=== PATIENT | female | born 1955 | race Caucasian/White ===

== ENCOUNTER 2021-02-02 12:57 | Emergency (ER) | payer MEDICARE ==
[2021-02-02] MEDS ORDERED: Dextrose 5% in Water 1,000 ML IV SCH (13:15)
[2021-02-02 13:25] VITALS: BP 160/72; PULSE 88
--- NOTE | 2021-02-02 14:50 | EDM.PDOC ---
ED HPI GENERAL MEDICAL PROBLEM - General Chief Complaint: Diabetic Complaint Stated Complaint: HYPOGLYCEMIA Time Seen by Provider: 02/02/21 13:10 Source of Information: Reports: Patient History Limitations: Reports: No Limitations - History of Present Illness INITIAL COMMENTS - FREE TEXT/NARRATIVE: patient with a known history of DM who presented to the ER due to concerns for l ow blood sugar levels. She was seem at the [facility] education clinic this morning when she '' dozed off '' according to description by the nurse who decided to check her BS - was 23. Reports that she had a breakfast this morning - but smaller than usual - then had her insulin injection. Had orange juice on her way to the ER - BS upon arrival os 65. Alert and oriented. - Related Data Allergies Allergy/AdvReac Type Severity Reaction Status Date / Time ibuprofen Allergy Intermediate migraine Verified 02/02/21 13:26 fluoxetine HCl [From Prozac] Allergy Cannot Verified 02/02/21 13:26 Remember gabapentin [From Neurontin] Allergy Cannot Verified 02/02/21 13:26 Remember Home Meds: Home Meds Aspirin 325 mg PO DAILY 07/25/13 [History] DULoxetine [Cymbalta] 60 mg PO DAILY 07/25/13 [History] Furosemide 20 mg PO DAILY 07/25/13 [History] Glimepiride 8 mg PO DAILY 07/25/13 [History] Hydrochlorothiazide 25 mg PO DAILY 07/25/13 [History] Indomethacin [Indocin SR] PRN 07/25/13 [History] Insulin Glarg,Human.Rec.Analog [Lantus Solostar] 49 units SQ BID 07/25/13 [History] Insulin Lispro [Humalog] 07/25/13 [History] Lisinopril 40 mg PO DAILY 07/25/13 [History] Omeprazole 20 mg PO DAILY 07/25/13 [History] Pregabalin [Lyrica] 60 mg PO TID 07/25/13 [History] metFORMIN [Glucophage] 1,000 PO BID 07/25/13 [History] Past Medical History Cardiovascular History: Reports: High Cholesterol, Hypertension Respiratory History: Reports: Asthma Gastrointestinal History: Reports: Other (See Below) Other Gastrointestinal History: 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 [employer] DIRECTOR History: Reports: Other (See Below) Other [employer] RESEARCH DIRECTOR History: total hysterectomy, masectomy on RT hx breast cancer Endocrine/Metabolic History: Reports: Diabetes, Type II, Obesity/BMI 30+ Social & Family History - Recreational Drug Use Recreational Drug Use: No ED ROS GENERAL - Review of Systems Review Of Systems: See Below Constitutional: Reports: No Symptoms HEENT: Reports: No Symptoms Respiratory: Reports: No Symptoms Cardiovascular: Reports: No Symptoms GI/Abdominal: Reports: No Symptoms : Reports: No Symptoms Musculoskeletal: Reports: Back Pain ED EXAM GENERAL NO PERIP PULSE - Physical Exam Exam: See Below Exam Limited By: No Limitations General Appearance: Alert, WD/WN, No Apparent Distress Eye Exam: Bilateral Eye: EOMI Respiratory/Chest: No Respiratory Distress Cardiovascular: Regular Rate, Rhythm GI/Abdominal: Normal Bowel Sounds, Soft Neurological: Alert, Oriented Course - Vital Signs Last Recorded V/S: Last Vital Signs Temp 36.4 C 02/02/21 13:23 Pulse 88 02/02/21 13:23 Resp 16 02/02/21 13:23 BP 160/72 H 02/02/21 13:23 Pulse Ox 96 02/02/21 13:23 - Orders/Labs/Meds Orders: Active Orders 24 hr Category Date Time Status GLYCOSYLATED HEMOGLOBIN,HGBA1C [CHEM] Stat Lab 02/02/21 14:01 Received Dextrose 5% in Water 1,000 ml Med 02/02/21 13:15 Active IV ASDIRECTED Medication Orders Dextrose/Water (Dextrose 5% In Water) 1,000 mls @ 999 mls/hr IV ASDIRECTED LIANET Last Admin: 02/02/21 13:15 Dose: 999 mls/hr Documented by: KEVIN Labs: Laboratory Tests 02/02/21 Range/Units 14:01 Sodium 142 (136-145) mmol/L Potassium 4.0 D (3.5-5.1) mmol/L Chloride 106 (98-107) mmol/L Carbon Dioxide 22.3 (21.0-32.0) mmol/L Anion Gap 17.7 H (5.0-15.0) mmol/L BUN 18 (8-26) mg/dL Creatinine 0.77 (0.55-1.02) mg/dL Est Cr Clr Drug Dosing 58.65 mL/min Estimated GFR (MDRD) > 60 (>60) MLS/MIN BUN/Creatinine Ratio 23.4 (6-25) Glucose 138 H (74-100) mg/dL Calcium 10.3 H (8.5-10.1) mg/dL Meds: Medications Generic Name Dose Route Start Last Admin Trade Name Hope PRN Reason Stop Dose Admin Dextrose/Water 1,000 mls @ 999 mls/hr 02/02/21 13:15 02/02/21 13:15 Dextrose 5% In Water IV 999 mls/hr ASDIRECTED [facility] Administration - Re-Assessments/Exams Free Text/Narrative Re-Assessment/Exam: blood tests ordered IV insulin dextrose 5% tolerated PO intake Departure - Departure Time of Disposition: 15:10 Disposition: Home, Self-Care 01 Condition: Good Clinical Impression: Hypoglycemia - Discharge Information *PRESCRIPTION DRUG MONITORING PROGRAM REVIEWED*: Not Applicable *COPY OF PRESCRIPTION DRUG MONITORING REPORT IN PATIENT LAMONTE: Not Applicable Instructions: Hypoglycemia, Hypoglycemia, [id number] Referrals: PCP,None [Primary Care Provider] - Forms: ED Department Discharge Additional Instructions: - resume home meds as before - recommend frequent blood sugar checks and to keep a sugar antonio snacks near by lico your BS dropped down - follow up with your PCP in 1-2 weeks to discuss insulin doses Sepsis Event Note (ED) - Evaluation Sepsis Screening Result: No Definite Risk - Focused Exam Vital Signs: Vital Signs Temp Pulse Resp BP Pulse Ox 02/02/21 13:23 36.4 C 88 16 160/72 H 96 - Problem List & Annotations (1) Hypoglycemia SNOMED Code(s): 006858582 Code(s): E16.2 - HYPOGLYCEMIA, UNSPECIFIED Status: Acute Priority: Medium Current Visit: Yes - Problem List Review Problem List Initiated/Reviewed/Updated: Yes - My Orders Last 24 Hours: My Active Orders 02/02/21 13:15 Dextrose 5% in Water 1,000 ml IV ASDIRECTED 02/02/21 14:01 GLYCOSYLATED HEMOGLOBIN,HGBA1C [CHEM] Stat - Assessment/Plan Last 24 Hours: My Active Orders 02/02/21 13:15 Dextrose 5% in Water 1,000 ml IV ASDIRECTED 02/02/21 14:01 GLYCOSYLATED HEMOGLOBIN,HGBA1C [CHEM] Stat Plan: - resume home meds as before - recommend frequent blood sugar checks and to keep a sugar antonio snacks near by lico your BS dropped down - follow up with your PCP in 1-2 weeks to discuss insulin doses
[2021-02-02 14:58] LABS: HEMOGLOBIN A1C 7.7 % (< 5.7)
== END 2021-02-02 15:11 | disposition home or self-care (01) ==
LOC: LB.ED 12:57
DX: E11.649 Type 2 diabetes mellitus with hypoglycemia without coma (principal); E78.00 Pure hypercholesterolemia, unspecified; I10 Essential (primary) hypertension; E66.9 Obesity, unspecified; Z68.30 Body mass index [BMI] 30.0-30.9, adult; Z79.82 Long term (current) use of aspirin; Z79.4 Long term (current) use of insulin; Z88.5 Allergy status to narcotic agent; Z88.8 Allergy status to other drugs, medicaments and biological substances
CPT/HCPCS: 36415; 80048; 82947; 83036; 99283; J7060

== ENCOUNTER 2021-11-05 11:40 | Inpatient (IN) | payer MEDICARE ==
[~2021-11-05 11:40] MED LIST: HYDROmorphone 2 MG/ML SDV IM ONE
[2021-11-05] MEDS: HYDROmorphone 2 MG/ML SDV IVPUSH ONE ×2 (11:50→14:30)
[2021-11-05] MEDS: Sodium Chloride 0.9% 1,000 ML IV ONE ×2 (12:30→14:00)
[2021-11-05] MEDS ORDERED: 50% Dextrose in Water 50 ML Syringe IVPUSH PRN ×4 (13:36→23:32)
[2021-11-05] MEDS ORDERED: Insulin Regular, Human 100 Units/ML 3 ML Vial IV ONE ×2 (13:36→14:52)
[2021-11-05] MEDS ORDERED: Glucagon,Human Recombinant 1 MG Vial IM PRN ×4 (13:36→23:32)
[2021-11-05] MEDS ORDERED: Pantoprazole 40 MG Vial IVPUSH ONE (14:04)
[2021-11-05] MEDS ORDERED: Pantoprazole 40 MG Vial ONE (14:17)
[2021-11-05] MEDS ORDERED: HYDROmorphone 2 MG/ML SDV IVPUSH ONE (14:21)
[2021-11-05] MEDS ORDERED: HYDROmorphone 2 MG/ML SDV ONE (14:28)
[2021-11-05] MEDS ORDERED: Ondansetron 4 MG/2 ML SDV IV PRN (16:26)
[2021-11-05] MEDS ORDERED: Lactated Ringers 1,000 ML IV SCH (16:30)
[2021-11-05] MEDS ORDERED: diphenhydrAMINE 50 MG/ML SDV ONE (16:35)
[2021-11-05] MEDS ORDERED: diphenhydrAMINE 50 MG/ML SDV IVPUSH ONE (16:47)
[2021-11-05] MEDS ORDERED: Dextrose 5%-0.45% NaCl 1,000 ML IV STA (19:23)
[2021-11-05] MEDS ORDERED: PREGABALIN 100 MG PO SCH (20:00)
[2021-11-05] MEDS ORDERED: Insulin Aspart 100 Units/ML 3 ML Pen SUBCUT SCH (20:30)
[2021-11-05] MEDS ORDERED: Metoprolol Tartrate 5 MG in Sodium Chloride 0.9% 50 ML IV PRN (20:40)
[2021-11-05] MEDS ORDERED: Metoprolol Tartrate 5 MG/5 ML SDV IVPUSH PRN (20:55)
[2021-11-05] MEDS ORDERED: Insulin Aspart 100 Units/ML 3 ML Pen ONE ×3 (21:17→21:19)
[2021-11-05] MEDS ORDERED: Sodium Chloride 0.9% 1,000 ML IV SCH (22:30)
[2021-11-05] MEDS ORDERED: Pregabalin 75 MG Cap ONE (23:00)
[2021-11-05] MEDS ORDERED: Acetaminophen 325 MG Tab ONE (23:01)
[2021-11-05] MEDS ORDERED: Pregabalin 75 MG Cap PO ONE (23:45)
[2021-11-05] MEDS: Acetaminophen 325 MG Tab PO PRN (23:48)
[2021-11-06] MEDS ORDERED: Sodium Chloride 0.9% 1,000 ML IV SCH ×2 (00:30)
[2021-11-06] MEDS ORDERED: Pregabalin 75 MG Cap PO ONE (00:30)
[2021-11-06] MEDS: Insulin Aspart 100 Units/ML 3 ML Pen SUBCUT SCH ×5 (01:26→21:01)
[2021-11-06 04:09] LABS: HEMOGLOBIN A1C 9.3 % (< 5.7)
[2021-11-06] MEDS: Furosemide 20 MG Tab PO SCH (07:22)
[2021-11-06] MEDS ORDERED: Pregabalin 75 MG Cap PO SCH (08:00)
[2021-11-06] MEDS: DULoxetine 60 MG Cap PO SCH (08:44)
[2021-11-06] MEDS: Aspirin 325 MG Tab.EC PO SCH (08:44)
[2021-11-06] MEDS: Hydrochlorothiazide 25 MG Tab PO SCH (08:44)
[2021-11-06] MEDS: Lisinopril 20 MG Tab PO SCH (08:45)
[2021-11-06] MEDS: Pregabalin 75 MG Cap PO SCH ×3 (08:45→20:39)
[2021-11-06] MEDS: Insulin Glargine,Human Rec. Analog 100 Units/ML 3 ML Pen SUBCUT SCH ×2 (09:25→19:35)
[2021-11-06] MEDS: Glimepiride 4 MG Tab PO SCH (09:28)
[2021-11-06] MEDS ORDERED: Insulin Aspart 100 Units/ML 3 ML Pen SUBCUT ONE (13:17)
[2021-11-06] MEDS ORDERED: Glucagon,Human Recombinant 1 MG Vial IM PRN (13:17)
[2021-11-06] MEDS ORDERED: 50% Dextrose in Water 50 ML Syringe IVPUSH PRN (13:17)
[2021-11-06] MEDS ORDERED: Pantoprazole 40 MG Vial IVPUSH SCH (16:45)
[2021-11-06] MEDS ORDERED: Pantoprazole 40 MG Delayed-Release Granules 1 Packet PO SCH (20:00)
[2021-11-06] MEDS: Acetaminophen 325 MG Tab PO PRN (20:38)
[2021-11-06] MEDS ORDERED: Pantoprazole 40 MG Tab.CR ONE (20:43)
[2021-11-06] MEDS: Pantoprazole 40 MG Tab.CR PO SCH (21:08)
[2021-11-07] MEDS: Insulin Aspart 100 Units/ML 3 ML Pen SUBCUT SCH ×4 (01:24→12:13)
[2021-11-07] MEDS: Aspirin 325 MG Tab.EC PO SCH (08:30)
[2021-11-07] MEDS: Glimepiride 4 MG Tab PO SCH (08:30)
[2021-11-07] MEDS: Hydrochlorothiazide 25 MG Tab PO SCH (08:30)
[2021-11-07] MEDS: Pregabalin 75 MG Cap PO SCH ×3 (08:30→19:27)
[2021-11-07] MEDS: Lisinopril 20 MG Tab PO SCH (08:30)
[2021-11-07] MEDS: Furosemide 20 MG Tab PO SCH (08:30)
[2021-11-07] MEDS: DULoxetine 60 MG Cap PO SCH (08:30)
[2021-11-07] MEDS: Insulin Glargine,Human Rec. Analog 100 Units/ML 3 ML Pen SUBCUT SCH ×2 (08:30→23:15)
[2021-11-07] MEDS ORDERED: Famotidine 20 MG Tab PO ONE (12:25)
[2021-11-07] MEDS ORDERED: Insulin Aspart 100 Units/ML 3 ML Pen SUBCUT STA (12:30)
[2021-11-07] MEDS ORDERED: metFORMIN 1,000 MG Tab PO SCH (16:00)
[2021-11-07] MEDS: Pantoprazole 40 MG Tab.CR PO SCH (19:27)
[2021-11-07] MEDS ORDERED: Docusate Sodium 100 MG Cap PO PRN (20:00)
[2021-11-08] MEDS: Hydrochlorothiazide 25 MG Tab PO SCH (08:00)
[2021-11-08] MEDS: Furosemide 20 MG Tab PO SCH (08:00)
[2021-11-08] MEDS ORDERED: glyBURIDE 5 MG Tab PO SCH (08:00)
[2021-11-08] MEDS ORDERED: metFORMIN 1,000 MG Tab PO SCH (08:00)
[2021-11-08] MEDS: Lisinopril 20 MG Tab PO SCH (08:00)
[2021-11-08] MEDS: Insulin Aspart 100 Units/ML 3 ML Pen SUBCUT SCH ×2 (08:10→12:06)
[2021-11-08] MEDS: Aspirin 325 MG Tab.EC PO SCH (08:17)
[2021-11-08] MEDS: DULoxetine 60 MG Cap PO SCH (08:18)
[2021-11-08] MEDS: Pregabalin 75 MG Cap PO SCH (08:18)
[2021-11-08] MEDS: Insulin Glargine,Human Rec. Analog 100 Units/ML 3 ML Pen SUBCUT SCH (12:05)
[2021-11-08 13:18] VITALS: BP 140/80; PULSE 72
== END 2021-11-08 12:56 | disposition home or self-care (01) | DRG 637 ==
LOC: LB.ED 11:40 → LB.MS 16:24 → UNDOADMIN 16:35
PROVIDERS: ADMIT Physician Assistant; ATTEND Physician Assistant
DX: E11.10 Type 2 diabetes mellitus with ketoacidosis without coma (principal); G93.41 Metabolic encephalopathy; E87.1 Hypo-osmolality and hyponatremia; Z68.41 Body mass index [BMI] 40.0-44.9, adult; E78.00 Pure hypercholesterolemia, unspecified; I10 Essential (primary) hypertension; J45.909 Unspecified asthma, uncomplicated; Z20.822 Contact with and (suspected) exposure to COVID-19; E66.9 Obesity, unspecified; K20.90 Esophagitis, unspecified without bleeding; E78.5 Hyperlipidemia, unspecified; R10.11 Right upper quadrant pain; R11.0 Nausea; E86.0 Dehydration; E11.65 Type 2 diabetes mellitus with hyperglycemia; R00.0 Tachycardia, unspecified; Z88.6 Allergy status to analgesic agent; Z88.8 Allergy status to other drugs, medicaments and biological substances; Z79.82 Long term (current) use of aspirin; Z85.3 Personal history of malignant neoplasm of breast; Z79.899 Other long term (current) drug therapy; Z79.4 Long term (current) use of insulin; Z90.710 Acquired absence of both cervix and uterus; Z90.11 Acquired absence of right breast and nipple
CPT/HCPCS: 36415; 71045; 74176; 80048; 80053; 80307; 81001; 82009; 82947; 83036; 83605; 83690; 83735; 85025; 87070; 96372; 96374; 96375; 99285-25; A9270-GY; C9113; J1170; J1200; J1815-GY; J7030; J7042; J7120; U0002

== ENCOUNTER 2021-12-02 13:37 | Emergency (ER) | payer MEDICARE ==
[2021-12-02] MEDS: 50% Dextrose in Water 50 ML Syringe IVPUSH ONE ×2 (13:50→15:00)
[2021-12-02] MEDS: Atropine 0.4 MG/ML SDV IVPUSH ONE (14:07)
[2021-12-02] MEDS: Ondansetron 4 MG/2 ML SDV IVPUSH ONE (14:30)
[2021-12-02] MEDS: Norepinephrine 4 MG in Dextrose 5% in Water 246 ML IV SCH ×2 (14:44)
[2021-12-02] MEDS: Naloxone 2 MG/2 ML Syringe IVPUSH PRN (15:10)
[2021-12-02] MEDS: 50% Dextrose in Water 50 ML Syringe ONE ×2 (15:30)
[2021-12-02] MEDS: Ondansetron 4 MG/2 ML SDV ONE (15:32)
[2021-12-02] MEDS ORDERED: Piperacillin/Tazobactam 3.375 GM in Sodium Chloride 0.9% 100 ML IV SCH (15:45)
[2021-12-02] MEDS: ceFAZolin 1 GM in Sodium Chloride 0.9% 50 ML IV ONE (16:13)
[2021-12-02] MEDS: ceFAZolin 1 GM Vial ONE (16:18)
[2021-12-02 16:32] VITALS: BP 87/50; PULSE 74
[2021-12-02] MEDS ORDERED: Ondansetron 4 MG Tab.DIS ONE (16:57)
== END 2021-12-02 16:45 ==
LOC: LB.ED 13:37
DX: A41.9 Sepsis, unspecified organism (principal); I95.9 Hypotension, unspecified; I10 Essential (primary) hypertension; E11.9 Type 2 diabetes mellitus without complications; Z90.710 Acquired absence of both cervix and uterus; Z79.82 Long term (current) use of aspirin; Z79.899 Other long term (current) drug therapy; Z79.4 Long term (current) use of insulin; Z79.84 Long term (current) use of oral hypoglycemic drugs; Z88.6 Allergy status to analgesic agent; Z88.8 Allergy status to other drugs, medicaments and biological substances; Z20.822 Contact with and (suspected) exposure to COVID-19
CPT/HCPCS: 36415; 70450; 71250; 74176; 80053; 82947; 83605; 83690; 83880; 84484; 85025; 93005; 93010; 96365; 96375; 96376; 99285; A0425; A0429; J0461; J0690; J2310; J2405; J7060; U0002

== ENCOUNTER 2022-02-19 10:45 | Emergency (ER) | payer MEDICARE ==
[2022-02-19 10:57] VITALS: BP 133/97; PULSE 109
[2022-02-19] MEDS ORDERED: Ketorolac 60 MG/2 ML SDV IM ONE (11:26)
== END 2022-02-19 12:10 | disposition home or self-care (01) ==
LOC: LB.ED 10:45
DX: M77.8 Other enthesopathies, not elsewhere classified (principal); E78.00 Pure hypercholesterolemia, unspecified; I10 Essential (primary) hypertension; E11.9 Type 2 diabetes mellitus without complications; E66.9 Obesity, unspecified; Z88.5 Allergy status to narcotic agent; Z88.8 Allergy status to other drugs, medicaments and biological substances; Z68.41 Body mass index [BMI] 40.0-44.9, adult; Z79.82 Long term (current) use of aspirin; Z79.4 Long term (current) use of insulin; Z79.899 Other long term (current) drug therapy
CPT/HCPCS: 73030; 96372; 99283; J1885; 99282

== ENCOUNTER 2023-02-16 13:43 | Emergency (ER) | payer MEDICARE ==
[2023-02-16] MEDS ORDERED: Acetaminophen 325 MG Tab PO ONE (14:15)
[2023-02-16] MEDS ORDERED: oxyCODONE 5 MG Tab PO ONE (14:16)
[2023-02-16] MEDS ORDERED: Ibuprofen 800 MG Tab PO ONE (14:16)
[2023-02-16] MEDS ORDERED: Cyclobenzaprine 10 MG Tab PO ONE (14:16)
[2023-02-16 15:50] VITALS: BP 114/56; PULSE 64
== END 2023-02-16 15:49 | disposition home or self-care (01) ==
LOC: LB.ED 13:43
DX: M54.50 Low back pain, unspecified (principal); I10 Essential (primary) hypertension; J45.909 Unspecified asthma, uncomplicated; E11.9 Type 2 diabetes mellitus without complications; K21.9 Gastro-esophageal reflux disease without esophagitis; E66.9 Obesity, unspecified; Z68.41 Body mass index [BMI] 40.0-44.9, adult; Z88.6 Allergy status to analgesic agent; Z88.8 Allergy status to other drugs, medicaments and biological substances; Z79.82 Long term (current) use of aspirin; Z79.4 Long term (current) use of insulin; Z79.899 Other long term (current) drug therapy
CPT/HCPCS: 99283; A9270-GY

== ENCOUNTER 2023-06-26 13:40 | Emergency (ER) | payer MEDICARE ==
[2023-06-26] MEDS ORDERED: Sodium Chloride 0.9% 10 ML Syringe FLUSH PRN (13:51)
[2023-06-26 14:15] LABS: HEMATOCRIT 42.4 % (37.0-47.0); HEMOGLOBIN 14.1 g/dL (11.5-16.5); MEAN CORPUSCULAR HEMOGLOBIN 28.5 pg (27.0-32.0); MEAN CORPUSCULAR HGB CONC 33.3 g/dL (31.0-35.0); RED BLOOD CELL COUNT 4.95 M/uL (3.80-5.80); RED CELL DISTRIBUTION WIDTH 13.4 % (11.0-16.0); WHITE BLOOD CELL COUNT,WBC 7.3 K/uL (4.0-11.0)
[2023-06-26 14:38] LABS: A/G RATIO 0.8 (0.8-2.0); ALBUMIN 3.1 g/dL (3.4-5.0); ANION GAP 11.1 mmol/L (5.0-15.0); BILIRUBIN TOTAL 0.5 mg/dL (0.0-1.0); BUN/CREATININE RATIO 22.7 (6-25); CALCIUM 10.6 mg/dL (8.5-10.1); CARBON DIOXIDE,CO2 28.5 mmol/L (21.0-32.0); CREATININE 0.75 mg/dL (0.55-1.02); EST CRCL DRUG DOSING (CG) 55.99 mL/min; MAGNESIUM 1.4 mg/dL (1.8-2.4); POTASSIUM,K 3.6 mmol/L (3.5-5.1); TROPONIN I HIGH SENSITIVITY 6.5 pg/ml (<=60.4)
[2023-06-26] MEDS: Sodium Chloride 0.9% 1,000 ML IV SCH (14:58)
[2023-06-26] MEDS: Albuterol/Ipratropium 3.0-0.5 MG/3 ML Neb Soln NEB SCH (15:03)
[2023-06-26] MEDS: Albuterol/Ipratropium 3.0-0.5 MG/3 ML Neb Soln ONE (16:35)
[2023-06-26] MEDS: Albuterol 0.083% 2.5 MG/3 ML Neb Soln NEB ONE (18:43)
[2023-06-26] MEDS: Albuterol 0.083% 2.5 MG/3 ML Neb Soln ONE (18:55)
[2023-06-26 19:24] VITALS: BP 158/58; PULSE 83
== END 2023-06-26 19:00 | disposition home or self-care (01) ==
LOC: LB.ED 13:40
DX: R06.02 Shortness of breath (principal); E83.42 Hypomagnesemia; I10 Essential (primary) hypertension; J45.909 Unspecified asthma, uncomplicated; E11.9 Type 2 diabetes mellitus without complications; E66.9 Obesity, unspecified; Z68.41 Body mass index [BMI] 40.0-44.9, adult; Z79.4 Long term (current) use of insulin; Z79.82 Long term (current) use of aspirin; Z88.6 Allergy status to analgesic agent; Z79.899 Other long term (current) drug therapy
CPT/HCPCS: 36415; 71045; 80053; 83735; 83880; 84100; 84484; 85027; 85379; 87430; 93005; 93010; 96361; 96365; 99283; 99283-25; J3475; J7030; J7620

== ENCOUNTER 2024-03-27 15:32 | Inpatient (IN) | payer MEDICARE ==
[2024-03-27] MEDS ORDERED: Sodium Chloride 0.9% 10 ML Syringe FLUSH PRN (15:52)
[2024-03-27 16:20] LABS: HEMOGLOBIN A1C 11.2 % (< 5.7)
[2024-03-27] MEDS: Sodium Chloride 0.9% 1,000 ML IV SCH ×2 (16:30→20:55)
[2024-03-27] MEDS: Insulin Regular, Human 100 Units/ML 3 ML Vial IV ONE (16:34)
[2024-03-27 16:38] LABS: A/G RATIO 0.9 (0.8-2.0); ALANINE AMINOTRANSFERASE,ALT 31 U/L (12-78); ALBUMIN 3.4 g/dL (3.4-5.0); ALKALINE PHOSPHATASE 112 U/L (46-116); ANION GAP 14.8 mmol/L (5.0-15.0); ASPARTATE AMNIOTRANSFERASE,AST 27 U/L (15-37); BILIRUBIN TOTAL 0.6 mg/dL (0.0-1.0); BLOOD UREA NITROGEN,BUN 14 mg/dL (8-26); BUN/CREATININE RATIO 13.7 (6-25); CALCIUM 11.4 mg/dL (8.5-10.1); CARBON DIOXIDE,CO2 26.7 mmol/L (21.0-32.0); CHLORIDE,CL 98 mmol/L (98-107); CREATININE 1.02 mg/dL (0.55-1.02); EST CRCL DRUG DOSING (CG) 43.38 mL/min; ESTIMATED GFR 59 mL/min (>60); MAGNESIUM 1.2 mg/dL (1.8-2.4); PHOSPHORUS 2.9 mg/dL (2.5-4.9); POTASSIUM,K 4.5 mmol/L (3.5-5.1); PRO B-TYPE NATRIUR PEPT,BNPPRO 33 pg/mL (0-125); PROTEIN TOTAL,TP 7.2 g/dL (6.4-8.2); SODIUM,NA 135 mmol/L (136-145)
[2024-03-27 16:42] LABS: GLUCOSE RANDOM 433 mg/dL (74-100)
[2024-03-27 16:43] LABS: TROPONIN I HIGH SENSITIVITY < 4.0 pg/ml (<=60.4)
[2024-03-27 16:50] LABS: APPEARANCE,URINE CLEAR (CLEAR); BILIRUBIN,URINE NEGATIVE (NEGATIVE); COLOR,URINE YELLOW; GLUCOSE,URINE 500 mg/dL (NEGATIVE); KETONES,URINE NEGATIVE (NEGATIVE); LEUKOCYTE ESTERASE,URINE NEGATIVE (NEGATIVE); NITRITE,URINE NEGATIVE (NEGATIVE); OCCULT BLOOD,URINE NEGATIVE (NEGATIVE); PROTEIN,URINE NEGATIVE (NEGATIVE); UROBILINOGEN,URINE 0.2 E.U./dL (0.2-1.0)
[2024-03-27] MEDS: Calcium Carbonate 500 MG Tab.Chew PO ONE (17:50)
[2024-03-27] MEDS ORDERED: 50% Dextrose in Water 50 ML Syringe IVPUSH PRN (18:00)
[2024-03-27] MEDS ORDERED: Glucagon,Human Recombinant 1 MG Vial IM PRN (18:00)
[2024-03-27] MEDS ORDERED: Insulin Lispro 100 Unit/ML 3 ML KwikPen SUBCUT SCH (18:00)
[2024-03-27] MEDS: Insulin Glargine,Human Rec. Analog 100 Units/ML 3 ML Pen SUBCUT SCH (19:18)
[2024-03-27] MEDS: metFORMIN 1,000 MG Tab PO SCH (19:20)
[2024-03-27] MEDS: atorvaSTATin 20 MG Tab PO SCH (19:21)
[2024-03-27] MEDS ORDERED: Calcium Carbonate 500 MG Tab.Chew PO PRN (21:05)
[2024-03-28] MEDS: metFORMIN 1,000 MG Tab PO SCH (08:15)
[2024-03-28] MEDS: glipiZIDE 2.5 MG Tab.ER PO SCH (08:15)
[2024-03-28] MEDS: Omeprazole 20 MG Cap.CR PO SCH (08:15)
[2024-03-28] MEDS: DULoxetine 30 MG Cap PO SCH (08:16)
[2024-03-28] MEDS: Metoprolol Succinate 25 MG Tab.ER PO SCH (08:16)
[2024-03-28] MEDS: Lisinopril 20 MG Tab PO SCH (08:16)
[2024-03-28] MEDS: Aspirin 325 MG Tab.EC PO SCH (08:17)
[2024-03-28] MEDS: Furosemide 20 MG Tab PO SCH (08:17)
[2024-03-28] MEDS ORDERED: Glucagon,Human Recombinant 1 MG Vial IM PRN ×2 (10:01→20:14)
[2024-03-28] MEDS ORDERED: 50% Dextrose in Water 50 ML Syringe IVPUSH PRN (10:01)
[2024-03-28] MEDS: Non-Formulary Medication 1 Each (Liraglutide [Victoza] 18 MG/3 ML Pen) SUBCUT SCH (10:02)
[2024-03-28] MEDS: Insulin Aspart 100 Units/ML 3 ML Pen SUBCUT ONE ×2 (10:18→20:25)
[2024-03-29] MEDS ORDERED: Liraglutide [Victoza] 18 MG/3 ML Pen SUBCUT SCH (08:00)
[2024-03-29] MEDS: Insulin Lispro 100 Unit/ML 3 ML KwikPen SUBCUT SCH (08:42)
[2024-03-29] MEDS: Insulin Aspart 100 Units/ML 3 ML Pen SUBCUT SCH (12:00)
[2024-03-29] MEDS ORDERED: 50% Dextrose in Water 50 ML Syringe IVPUSH PRN ×2 (12:24→12:26)
[2024-03-29] MEDS ORDERED: Insulin Lispro 100 Unit/ML 3 ML KwikPen SUBCUT ONE (12:24)
[2024-03-29] MEDS ORDERED: Glucagon,Human Recombinant 1 MG Vial IM PRN ×2 (12:24→12:26)
[2024-03-29] MEDS ORDERED: Insulin Glargine,Human Rec. Analog 100 Units/ML 3 ML Pen SUBCUT SCH (20:00)
[2024-03-29] MEDS: Insulin Glargine,Human Rec. Analog 100 Units/ML 3 ML Pen SUBCUT SCH (21:21)
[2024-03-30] MEDS: Insulin Aspart 100 Units/ML 3 ML Pen SUBCUT ONE (21:02)
[2024-03-31] MEDS: Acetaminophen 500 MG Tab PO SCH (05:43)
[2024-03-31 17:51] VITALS: BP 130/69; PULSE 57
== END 2024-03-31 15:08 | disposition home or self-care (01) | DRG 639 ==
LOC: LB.ED 15:32 → LB.MS 17:58 → UNDOADMIN 18:00 → LB.MS 18:00
PROVIDERS: ADMIT Surgery; ATTEND Surgery
DX: E11.65 Type 2 diabetes mellitus with hyperglycemia (principal); E83.42 Hypomagnesemia; E86.0 Dehydration; H54.7 Unspecified visual loss; E78.00 Pure hypercholesterolemia, unspecified; I10 Essential (primary) hypertension; J45.909 Unspecified asthma, uncomplicated; E66.9 Obesity, unspecified; F32.A Depression, unspecified; E83.52 Hypercalcemia; Z79.82 Long term (current) use of aspirin; Z79.899 Other long term (current) drug therapy; Z88.8 Allergy status to other drugs, medicaments and biological substances; Z79.4 Long term (current) use of insulin; Z79.84 Long term (current) use of oral hypoglycemic drugs; Z90.710 Acquired absence of both cervix and uterus; Z85.3 Personal history of malignant neoplasm of breast; Z90.11 Acquired absence of right breast and nipple
CPT/HCPCS: 36415; 70360; 71046; 80048; 80053; 81003; 82947; 83036; 83735; 83880; 84100; 84484; 85025; 87493; 93005; 93010; 96361; 96374; 99222; 99231; 99238; 99285-25; A9270-GY; J1815; J1815-GY; J3475; J7030

== ENCOUNTER 2024-10-01 13:52 | Inpatient (IN) | payer MEDICARE ==
[2024-10-01] MEDS: Insulin Lispro 100 Unit/ML 3 ML KwikPen SUBCUT ONE ×2 (15:37→16:49)
[2024-10-01 15:59] LABS: HEMATOCRIT 45.1 % (37.0-47.0); HEMOGLOBIN 15.6 g/dL (11.5-16.5); MEAN CORPUSCULAR HEMOGLOBIN 28.1 pg (27.0-32.0); MEAN CORPUSCULAR HGB CONC 34.6 g/dL (31.0-35.0); MEAN PLATELET VOLUME 11.5 fL (6.0-10.0); RED BLOOD CELL COUNT 5.56 M/uL (3.80-5.80); RED CELL DISTRIBUTION WIDTH 13.3 % (11.0-16.0); WHITE BLOOD CELL COUNT,WBC 8.7 K/uL (4.0-11.0)
[2024-10-01 16:06] LABS: APPEARANCE,URINE CLEAR (CLEAR); BILIRUBIN,URINE NEGATIVE (NEGATIVE); COLOR,URINE YELLOW; GLUCOSE,URINE >=1000 mg/dL (NEGATIVE); KETONES,URINE NEGATIVE (NEGATIVE); PROTEIN,URINE NEGATIVE (NEGATIVE)
[2024-10-01 16:07] LABS: LEUKOCYTE ESTERASE,URINE NEGATIVE (NEGATIVE); NITRITE,URINE NEGATIVE (NEGATIVE); OCCULT BLOOD,URINE NEGATIVE (NEGATIVE); RBC,URINE NOT SEEN /HPF; UROBILINOGEN,URINE 0.2 E.U./dL (0.2-1.0); WBC,URINE NOT SEEN /HPF
[2024-10-01 16:12] LABS: ANION GAP 13.4 mmol/L (5.0-15.0); BUN/CREATININE RATIO 15.6 (6-25); CALCIUM 11.5 mg/dL (8.5-10.1); CARBON DIOXIDE,CO2 24.9 mmol/L (21.0-32.0); CREATININE 0.96 mg/dL (0.55-1.02); EST CRCL DRUG DOSING (CG) 45.11 mL/min; POTASSIUM,K 4.3 mmol/L (3.5-5.1)
[2024-10-01 16:32] LABS: HEMOGLOBIN A1C > 14.0 % (< 5.7)
[2024-10-01] MEDS ORDERED: Glucagon,Human Recombinant 1 MG Vial IM PRN ×2 (16:41→18:18)
[2024-10-01] MEDS ORDERED: Insulin NPH/Insulin Regular,Human 70-30 100 Units/ML 3 ML Pen SQ ONE (17:30)
[2024-10-01] MEDS ORDERED: Acetaminophen 325 MG Tab PO PRN (17:55)
[2024-10-01] MEDS ORDERED: 50% Dextrose in Water 50 ML Syringe IVPUSH PRN (18:18)
[2024-10-01] MEDS ORDERED: Insulin Lispro 100 Unit/ML 3 ML KwikPen SUBCUT SCH (18:30)
[2024-10-01] MEDS: Heparin Sodium 5,000 Units/ML Vial SUBCUT SCH (18:31)
[2024-10-01] MEDS: metFORMIN 1,000 MG Tab PO SCH (20:13)
[2024-10-01] MEDS: atorvaSTATin 20 MG Tab PO SCH (20:13)
[2024-10-01] MEDS: Insulin Glargine,Human Rec. Analog 100 Units/ML 3 ML Pen SUBCUT SCH (20:14)
[2024-10-02] MEDS ORDERED: Non-Formulary Medication 1 Each (Liraglutide [Victoza] 18 MG/3 ML Pen) SUBCUT SCH (08:00)
[2024-10-02] MEDS: metFORMIN 1,000 MG Tab PO SCH (08:17)
[2024-10-02] MEDS: DULoxetine 30 MG Cap PO SCH (08:17)
[2024-10-02] MEDS: Aspirin 325 MG Tab.EC PO SCH (08:17)
[2024-10-02] MEDS: Furosemide 20 MG Tab PO SCH (08:18)
[2024-10-02] MEDS: Metoprolol Succinate 25 MG Tab.ER PO SCH (08:18)
[2024-10-02] MEDS: glipiZIDE 2.5 MG Tab.ER PO SCH (08:18)
[2024-10-02] MEDS: Lisinopril 20 MG Tab PO SCH (08:18)
[2024-10-02 09:01] LABS: ANION GAP 7.9 mmol/L (5.0-15.0); BUN/CREATININE RATIO 17.7 (6-25); CALCIUM 10.8 mg/dL (8.5-10.1); CARBON DIOXIDE,CO2 28.9 mmol/L (21.0-32.0); CREATININE 0.79 mg/dL (0.55-1.02); EST CRCL DRUG DOSING (CG) 54.81 mL/min; POTASSIUM,K 3.8 mmol/L (3.5-5.1)
[2024-10-02] MEDS: Insulin NPH/Insulin Regular,Human 70-30 100 Units/ML 10 ML Vial SUBCUT SCH ×2 (10:41→11:20)
[2024-10-02] MEDS: Insulin Lispro 100 Unit/ML 3 ML KwikPen SUBCUT SCH (11:19)
[2024-10-02] MEDS: Bacitracin Oint 1 GM U/D Packet TOP SCH (17:58)
[2024-10-02] MEDS: Insulin NPH/Insulin Regular,Human 70-30 100 Units/ML 10 ML Vial SUBCUT ONE (21:18)
[2024-10-03] MEDS: Insulin NPH/Insulin Regular,Human 70-30 100 Units/ML 10 ML Vial SUBCUT SCH ×2 (10:00→20:04)
[2024-10-03] MEDS: Enoxaparin 60 MG/0.6 ML Syringe SUBCUT SCH (10:02)
[2024-10-03] MEDS ORDERED: 50% Dextrose in Water 50 ML Syringe IVPUSH PRN (12:56)
[2024-10-03] MEDS ORDERED: Glucagon,Human Recombinant 1 MG Vial IM PRN (12:56)
[2024-10-03] MEDS: Insulin Lispro 100 Unit/ML 3 ML KwikPen SUBCUT SCH (13:27)
[2024-10-03 14:16] LABS: BUN/CREATININE RATIO 19.8 (6-25); CALCIUM 11.3 mg/dL (8.5-10.1); CARBON DIOXIDE,CO2 23.6 mmol/L (21.0-32.0); CREATININE 1.06 mg/dL (0.55-1.02); EST CRCL DRUG DOSING (CG) 40.85 mL/min; POTASSIUM,K 4.6 mmol/L (3.5-5.1)
[2024-10-03] MEDS ORDERED: Insulin NPH/Insulin Regular,Human 70-30 100 Units/ML 10 ML Vial SUBCUT SCH ×2 (20:00)
[2024-10-04] MEDS: Multivitamin Tab PO SCH (09:08)
[2024-10-04 09:19] LABS: ANION GAP 21.9 mmol/L (5.0-15.0); BUN/CREATININE RATIO 19.8 (6-25); CALCIUM 11.5 mg/dL (8.5-10.1); CARBON DIOXIDE,CO2 16.6 mmol/L (21.0-32.0); CREATININE 0.81 mg/dL (0.55-1.02); EST CRCL DRUG DOSING (CG) 53.46 mL/min; POTASSIUM,K 5.5 mmol/L (3.5-5.1)
[2024-10-04 12:04] VITALS: BP 125/62; PULSE 67
== END 2024-10-04 12:43 | disposition home or self-care (01) | DRG 638 ==
LOC: LB.ED 13:52 → LB.MS 17:40 → UNDOADMIN 17:40 → LB.MS 17:55
PROVIDERS: ADMIT Surgery; ATTEND Surgery
PROC: 0HD0XZZ Extraction of Scalp Skin, External Approach (ICD-10-PCS; principal; 2024-10-01)
DX: E11.65 Type 2 diabetes mellitus with hyperglycemia (principal); E87.1 Hypo-osmolality and hyponatremia; E87.8 Other disorders of electrolyte and fluid balance, not elsewhere classified; H54.7 Unspecified visual loss; E78.00 Pure hypercholesterolemia, unspecified; S00.00XA Unspecified superficial injury of scalp, initial encounter; Z88.6 Allergy status to analgesic agent; I10 Essential (primary) hypertension; J45.909 Unspecified asthma, uncomplicated; M19.90 Unspecified osteoarthritis, unspecified site; F32.A Depression, unspecified; E66.9 Obesity, unspecified; Z88.8 Allergy status to other drugs, medicaments and biological substances; Z79.82 Long term (current) use of aspirin; Z79.4 Long term (current) use of insulin; Z79.84 Long term (current) use of oral hypoglycemic drugs; Z79.899 Other long term (current) drug therapy; Z90.710 Acquired absence of both cervix and uterus; Z90.11 Acquired absence of right breast and nipple; Z85.3 Personal history of malignant neoplasm of breast; Z68.37 Body mass index [BMI] 37.0-37.9, adult; Z98.890 Other specified postprocedural states
CPT/HCPCS: 36415; 80048; 81001; 82947; 83036; 85027; 99222; 99232; 99238; 99285; A9270-GY; J1644; J1650; J1815; J1815-GY

== ENCOUNTER 2024-12-02 16:08 | Inpatient (IN) | payer MEDICARE ==
[2024-12-02] MEDS: Sodium Chloride 0.9% 1,000 ML IV ONE (16:50)
[2024-12-02 16:54] LABS: BASOPHILS ABSOLUTE AUTO 0.04 K/uL (0.02-0.10); BASOPHILS PERCENT AUTO 0.6 % (0.0-0.5); EOSINOPHILS ABSOLUTE AUTO 0.08 K/uL (0.04-0.40); EOSINOPHILS PERCENT AUTO 1.2 % (1.0-5.0); HEMATOCRIT 43.6 % (37.0-47.0); HEMOGLOBIN 15.1 g/dL (11.5-16.5); LYMPHOCYTES ABSOLUTE AUTO 1.91 K/uL (1.50-4.00); LYMPHOCYTES PERCENT AUTO 29.6 % (20.0-40.0); MEAN CORPUSCULAR HEMOGLOBIN 28.1 pg (27.0-32.0); MEAN CORPUSCULAR HGB CONC 34.6 g/dL (31.0-35.0); MEAN CORPUSCULAR VOLUME 81 fL (76-96); MEAN PLATELET VOLUME 11.4 fL (6.0-10.0); MONOCYTES ABSOLUTE AUTO 0.47 K/uL (0.20-0.80); MONOCYTES PERCENT AUTO 7.3 % (3.0-10.0); NEUTROPHILS ABSOLUTE AUTO 3.95 K/uL (2.00-7.50); NEUTROPHILS PERCENT AUTO 61.3 % (45.0-70.0); PLATELET COUNT,PLT 121 K/uL (150-500); RED BLOOD CELL COUNT 5.38 M/uL (3.80-5.80); RED CELL DISTRIBUTION WIDTH 14.1 % (11.0-16.0); WHITE BLOOD CELL COUNT,WBC 6.5 K/uL (4.0-11.0)
[2024-12-02 18:05] LABS: PCO2 VENOUS 45.6 mm/Hg (41-51); PH,VENOUS 7.32 (7.31-7.41)
[2024-12-02 18:06] LABS: BASE EXCESS VENOUS -2.3 mm/L (-2-3); BICARBONATE,VENOUS 23.7 mmol/L (23.0-28.0)
[2024-12-02 18:22] LABS: CARBON DIOXIDE,CO2 24.5 mmol/L (21.0-32.0); CHLORIDE,CL 98 mmol/L (98-107); POTASSIUM,K 4.2 mmol/L (3.5-5.1); PROTHROMBIN TIME 10.3 sec (9.0-11.5); SODIUM,NA 133 mmol/L (136-145)
[2024-12-02 18:23] LABS: A/G RATIO 0.9 (0.8-2.0); ALANINE AMINOTRANSFERASE,ALT 35 U/L (12-78); ALBUMIN 3.4 g/dL (3.4-5.0); ALKALINE PHOSPHATASE 201 U/L (46-116); ANION GAP 14.7 mmol/L (5.0-15.0); ASPARTATE AMNIOTRANSFERASE,AST 15 U/L (15-37); BILIRUBIN TOTAL 0.6 mg/dL (0.0-1.0); BLOOD UREA NITROGEN,BUN 21 mg/dL (8-26); BUN/CREATININE RATIO 29.6 (6-25); CALCIUM 10.9 mg/dL (8.5-10.1); CREATININE 0.71 mg/dL (0.55-1.02); EST CRCL DRUG DOSING (CG) 60.99 mL/min; ESTIMATED GFR 91 mL/min (>60); MAGNESIUM 1.8 mg/dL (1.8-2.4); PRO B-TYPE NATRIUR PEPT,BNPPRO 224 pg/mL (0-125); PROTEIN TOTAL,TP 7.4 g/dL (6.4-8.2); TROPONIN I HIGH SENSITIVITY 7.6 pg/ml (<=60.4)
[2024-12-02 18:24] LABS: ETHANOL BLOOD MEDICAL < 3.0 mg/dL (<3.0)
[2024-12-02 18:25] LABS: GLUCOSE RANDOM 534 mg/dL (74-100)
[2024-12-02] MEDS ORDERED: 50% Dextrose in Water 50 ML Syringe IVPUSH PRN ×3 (18:30→21:32)
[2024-12-02] MEDS ORDERED: Glucagon,Human Recombinant 1 MG Vial IM PRN ×3 (18:30→21:32)
[2024-12-02 18:31] LABS: APPEARANCE,URINE CLEAR (CLEAR); COLOR,URINE YELLOW; GLUCOSE,URINE 500 mg/dL (NEGATIVE); PH,URINE 6.5 (5.0-8.0); PROTEIN,URINE NEGATIVE (NEGATIVE)
[2024-12-02 18:32] LABS: BILIRUBIN,URINE NEGATIVE (NEGATIVE); KETONES,URINE 15 mg/dL (NEGATIVE); LEUKOCYTE ESTERASE,URINE NEGATIVE (NEGATIVE); NITRITE,URINE NEGATIVE (NEGATIVE); OCCULT BLOOD,URINE NEGATIVE (NEGATIVE); RBC,URINE NOT SEEN /HPF; SQUAMOUS EPITHELIAL CELLS,UR FEW /HPF; UROBILINOGEN,URINE 0.2 E.U./dL (0.2-1.0); WBC,URINE NOT SEEN /HPF
[2024-12-02] MEDS: Insulin Regular, Human 100 Units/ML 10 ML Vial IV ONE ×3 (18:48→21:24)
[2024-12-02] MEDS: NS + KCl 20mEq/L 1,000 ML IV SCH (18:50)
[2024-12-02] MEDS: Lactated Ringers 1,000 ML IV SCH (21:22)
[2024-12-02] MEDS: Pantoprazole 40 MG Vial IV SCH ×2 (21:28→21:32)
[2024-12-02] MEDS: Acetaminophen 325 MG Tab PO PRN (21:32)
[2024-12-02] MEDS: Insulin Regular, Human 100 Units/ML 10 ML Vial SUBCUT SCH (23:14)
[2024-12-03] MEDS ORDERED: Insulin Regular, Human 100 Units/ML 10 ML Vial SUBCUT SCH (07:00)
[2024-12-03] MEDS ORDERED: Insulin NPH/Insulin Regular,Human 70-30 100 Units/ML 10 ML Vial SUBCUT SCH (08:00)
[2024-12-03] MEDS ORDERED: Pantoprazole 40 MG Vial IV SCH (08:00)
[2024-12-03] MEDS ORDERED: Insuln Aspart Prot/Insulin Aspart 100 Units/ML 3 ML FlexPen SUBCUT SCH (08:00)
[2024-12-03] MEDS: DULoxetine 30 MG Cap PO SCH (08:20)
[2024-12-03] MEDS: glipiZIDE 2.5 MG Tab.ER PO SCH (08:20)
[2024-12-03] MEDS: metFORMIN 1,000 MG Tab PO SCH (08:20)
[2024-12-03] MEDS: Insulin NPH/Insulin Regular,Human 70-30 100 Units/ML 3 ML Pen SQ SCH (08:20)
[2024-12-03] MEDS: Enoxaparin 40 MG/0.4 ML Syringe SUBCUT SCH (08:24)
[2024-12-03] MEDS: Metoprolol Succinate 25 MG Tab.ER PO SCH (08:25)
[2024-12-03] MEDS: Lisinopril 20 MG Tab PO SCH (08:25)
[2024-12-03 08:30] LABS: BASOPHILS ABSOLUTE AUTO 0.04 K/uL (0.02-0.10); BASOPHILS PERCENT AUTO 0.7 % (0.0-0.5); EOSINOPHILS ABSOLUTE AUTO 0.19 K/uL (0.04-0.40); EOSINOPHILS PERCENT AUTO 3.4 % (1.0-5.0); HEMOGLOBIN 14.1 g/dL (11.5-16.5); LYMPHOCYTES PERCENT AUTO 37.7 % (20.0-40.0); MEAN CORPUSCULAR HEMOGLOBIN 28.5 pg (27.0-32.0); MEAN CORPUSCULAR HGB CONC 34.4 g/dL (31.0-35.0); MEAN CORPUSCULAR VOLUME 83 fL (76-96); MEAN PLATELET VOLUME 11.4 fL (6.0-10.0); MONOCYTES ABSOLUTE AUTO 0.39 K/uL (0.20-0.80); NEUTROPHILS ABSOLUTE AUTO 2.85 K/uL (2.00-7.50); NEUTROPHILS PERCENT AUTO 51.2 % (45.0-70.0); PLATELET COUNT,PLT 137 K/uL (150-500); RED BLOOD CELL COUNT 4.94 M/uL (3.80-5.80); RED CELL DISTRIBUTION WIDTH 14.4 % (11.0-16.0); WHITE BLOOD CELL COUNT,WBC 5.6 K/uL (4.0-11.0)
[2024-12-03 09:22] LABS: A/G RATIO 0.8 (0.8-2.0); ALBUMIN 2.9 g/dL (3.4-5.0); ANION GAP 10.1 mmol/L (5.0-15.0); BILIRUBIN TOTAL 0.6 mg/dL (0.0-1.0); BUN/CREATININE RATIO 17.3 (6-25); CALCIUM 10.5 mg/dL (8.5-10.1); CARBON DIOXIDE,CO2 26.9 mmol/L (21.0-32.0); CREATININE 0.75 mg/dL (0.55-1.02); EST CRCL DRUG DOSING (CG) 57.74 mL/min; PROTEIN TOTAL,TP 6.4 g/dL (6.4-8.2)
[2024-12-03] MEDS: atorvaSTATin 20 MG Tab PO SCH (19:41)
[2024-12-04 09:29] LABS: BASOPHILS ABSOLUTE AUTO 0.03 K/uL (0.02-0.10); BASOPHILS PERCENT AUTO 0.6 % (0.0-0.5); EOSINOPHILS ABSOLUTE AUTO 0.12 K/uL (0.04-0.40); EOSINOPHILS PERCENT AUTO 2.3 % (1.0-5.0); HEMATOCRIT 38.3 % (37.0-47.0); MEAN CORPUSCULAR HEMOGLOBIN 28.6 pg (27.0-32.0); MEAN CORPUSCULAR HGB CONC 33.9 g/dL (31.0-35.0); MEAN CORPUSCULAR VOLUME 84 fL (76-96); MEAN PLATELET VOLUME 11.3 fL (6.0-10.0); MONOCYTES ABSOLUTE AUTO 0.31 K/uL (0.20-0.80); NEUTROPHILS ABSOLUTE AUTO 3.22 K/uL (2.00-7.50); NEUTROPHILS PERCENT AUTO 62.1 % (45.0-70.0); PLATELET COUNT,PLT 120 K/uL (150-500); RED BLOOD CELL COUNT 4.54 M/uL (3.80-5.80); RED CELL DISTRIBUTION WIDTH 14.4 % (11.0-16.0); WHITE BLOOD CELL COUNT,WBC 5.2 K/uL (4.0-11.0)
[2024-12-04 09:56] LABS: A/G RATIO 0.8 (0.8-2.0); ALBUMIN 2.7 g/dL (3.4-5.0); ANION GAP 10.7 mmol/L (5.0-15.0); BILIRUBIN TOTAL 0.5 mg/dL (0.0-1.0); BUN/CREATININE RATIO 17.9 (6-25); CALCIUM 10.2 mg/dL (8.5-10.1); CARBON DIOXIDE,CO2 25.6 mmol/L (21.0-32.0); CREATININE 0.67 mg/dL (0.55-1.02); EST CRCL DRUG DOSING (CG) 64.63 mL/min; POTASSIUM,K 4.3 mmol/L (3.5-5.1); PROTEIN TOTAL,TP 5.9 g/dL (6.4-8.2)
[2024-12-04] MEDS: Insulin NPH/Insulin Regular,Human 70-30 100 Units/ML 3 ML Pen SQ SCH (17:30)
[2024-12-05 09:24] LABS: BASOPHILS ABSOLUTE AUTO 0.04 K/uL (0.02-0.10); BASOPHILS PERCENT AUTO 0.7 % (0.0-0.5); EOSINOPHILS ABSOLUTE AUTO 0.13 K/uL (0.04-0.40); EOSINOPHILS PERCENT AUTO 2.3 % (1.0-5.0); HEMATOCRIT 42.8 % (37.0-47.0); HEMOGLOBIN 14.2 g/dL (11.5-16.5); LYMPHOCYTES PERCENT AUTO 33.6 % (20.0-40.0); MEAN CORPUSCULAR HEMOGLOBIN 28.1 pg (27.0-32.0); MEAN CORPUSCULAR HGB CONC 33.2 g/dL (31.0-35.0); MEAN CORPUSCULAR VOLUME 85 fL (76-96); MEAN PLATELET VOLUME 11.7 fL (6.0-10.0); MONOCYTES ABSOLUTE AUTO 0.36 K/uL (0.20-0.80); MONOCYTES PERCENT AUTO 6.4 % (3.0-10.0); NEUTROPHILS ABSOLUTE AUTO 3.22 K/uL (2.00-7.50); PLATELET COUNT,PLT 134 K/uL (150-500); RED BLOOD CELL COUNT 5.05 M/uL (3.80-5.80); RED CELL DISTRIBUTION WIDTH 14.7 % (11.0-16.0); WHITE BLOOD CELL COUNT,WBC 5.7 K/uL (4.0-11.0)
[2024-12-05 09:47] LABS: A/G RATIO 0.8 (0.8-2.0); ALBUMIN 2.8 g/dL (3.4-5.0); BILIRUBIN TOTAL 0.5 mg/dL (0.0-1.0); BUN/CREATININE RATIO 15.9 (6-25); CALCIUM 10.4 mg/dL (8.5-10.1); CARBON DIOXIDE,CO2 27.2 mmol/L (21.0-32.0); CREATININE 0.63 mg/dL (0.55-1.02); EST CRCL DRUG DOSING (CG) 68.73 mL/min; PROTEIN TOTAL,TP 6.3 g/dL (6.4-8.2)
[2024-12-05 09:54] LABS: POTASSIUM,K 4.2 mmol/L (3.5-5.1)
[2024-12-05 10:41] VITALS: BP 153/60; PULSE 65
== END 2024-12-05 11:05 | disposition home or self-care (01) | DRG 638 ==
LOC: LB.ED 16:08 → LB.MS 18:38
PROVIDERS: ADMIT Physician Assistant; ATTEND Physician Assistant
DX: E11.65 Type 2 diabetes mellitus with hyperglycemia (principal); K86.1 Other chronic pancreatitis; K76.0 Fatty (change of) liver, not elsewhere classified; E78.00 Pure hypercholesterolemia, unspecified; Z88.6 Allergy status to analgesic agent; I10 Essential (primary) hypertension; J45.909 Unspecified asthma, uncomplicated; M19.90 Unspecified osteoarthritis, unspecified site; F32.A Depression, unspecified; E66.9 Obesity, unspecified; H54.7 Unspecified visual loss; Z79.84 Long term (current) use of oral hypoglycemic drugs; Z79.899 Other long term (current) drug therapy; Z88.8 Allergy status to other drugs, medicaments and biological substances; Z79.4 Long term (current) use of insulin; Z90.710 Acquired absence of both cervix and uterus; Z90.11 Acquired absence of right breast and nipple; Z68.39 Body mass index [BMI] 39.0-39.9, adult; Z98.890 Other specified postprocedural states
CPT/HCPCS: 36415; 71045; 80053; 80307; 81001; 82009; 82803; 82947; 83605; 83690; 83735; 83880; 84145; 84484; 85025; 85610; 93005; 93010; 96361; 96365; 96366; 97162-GP; 97165-GO; 99222; 99232; 99238; 99285-25; A9270-GY; J1650; J1815-GY; J2470; J3480; J7030; J7120

== ENCOUNTER 2025-02-23 11:41 | Emergency (ER) | payer MEDICARE ==
[2025-02-23] MEDS ORDERED: Sodium Chloride 0.9% 10 ML Syringe FLUSH PRN (11:58)
[2025-02-23 12:29] LABS: MEAN PLATELET VOLUME 11.4 fL (6.0-10.0); PLATELET COUNT,PLT 162.0 K/uL (150-500); RED BLOOD CELL COUNT 5.49 M/uL (3.80-5.80); RED CELL DISTRIBUTION WIDTH 13.6 % (11.0-16.0); WHITE BLOOD CELL COUNT,WBC 7.9 K/uL (4.0-11.0)
[2025-02-23 12:48] LABS: TROPONIN I HIGH SENSITIVITY 4.5 pg/ml (<=60.4)
[2025-02-23 12:58] LABS: LACTIC ACID 2.9 mmol/L (0.4-2.0)
[2025-02-23] MEDS: Ondansetron 4 MG Tab.DIS PO ONE (12:59)
[2025-02-23 13:13] LABS: A/G RATIO 0.8 (0.8-2.0); ALANINE AMINOTRANSFERASE,ALT 29.0 U/L (12-78); ASPARTATE AMNIOTRANSFERASE,AST 13.0 U/L (15-37); BILIRUBIN TOTAL 0.5 mg/dL (0.0-1.0); BLOOD UREA NITROGEN,BUN 12.0 mg/dL (8-26); CARBON DIOXIDE,CO2 25.3 mmol/L (21.0-32.0); CHLORIDE,CL 99.0 mmol/L (98-107); CREATININE 0.88 mg/dL (0.55-1.02); EST CRCL DRUG DOSING (CG) 48.5 mL/min; ESTIMATED GFR 70.0 mL/min (>60); POTASSIUM,K 4.1 mmol/L (3.5-5.1); PROTEIN TOTAL,TP 6.8 g/dL (6.4-8.2); SODIUM,NA 134.0 mmol/L (136-145)
[2025-02-23 13:21] LABS: GLUCOSE RANDOM 474.0 mg/dL (74-100)
[2025-02-23] MEDS: Magnesium Sulfat/D5W 1GM/100ML 1 GM in Premix Bag 1 BAG IV ONE (13:45)
[2025-02-23] MEDS: Ondansetron 4 MG/2 ML SDV IVPUSH ONE (13:45)
[2025-02-23] MEDS: Insulin Regular, Human 100 Units/ML 10 ML Vial SUBCUT ONE (15:44)
[2025-02-23 17:36] LABS: BLOOD UREA NITROGEN,BUN 11.0 mg/dL (8-26); CARBON DIOXIDE,CO2 25.6 mmol/L (21.0-32.0); CHLORIDE,CL 101.0 mmol/L (98-107); CREATININE 0.62 mg/dL (0.55-1.02); EST CRCL DRUG DOSING (CG) 68.84 mL/min; ESTIMATED GFR 95.0 mL/min (>60); GLUCOSE RANDOM 350.0 mg/dL (74-100); SODIUM,NA 134.0 mmol/L (136-145)
[2025-02-23 18:17] LABS: POTASSIUM,K 4.0 mmol/L (3.5-5.1)
[2025-02-23 21:30] VITALS: BP 121/83; PULSE 65
== END 2025-02-23 19:20 | disposition home or self-care (01) ==
LOC: LB.ED 11:41
DX: E11.65 Type 2 diabetes mellitus with hyperglycemia (principal); E83.42 Hypomagnesemia; I10 Essential (primary) hypertension; E66.9 Obesity, unspecified; E78.00 Pure hypercholesterolemia, unspecified; R74.02 Elevation of levels of lactic acid dehydrogenase [LDH]; Z88.6 Allergy status to analgesic agent; Z79.899 Other long term (current) drug therapy; Z79.84 Long term (current) use of oral hypoglycemic drugs; Z79.4 Long term (current) use of insulin; Z79.02 Long term (current) use of antithrombotics/antiplatelets; Z68.36 Body mass index [BMI] 36.0-36.9, adult
CPT/HCPCS: 36415; 80048; 80053; 82009; 82947; 83036; 83605; 83690; 83735; 84484; 85027; 99284; A9270; Q0162; Q0164